=== PATIENT | male | born 1965 | race Caucasian/White ===

== ENCOUNTER 2025-01-30 11:23 | Emergency (ER) | payer BC, SELFPAY ==
--- NOTE | ~2025-01-30 | XR_ITS ---
XR shoulder LT min 2V 01/30/2025 11:40 INDICATION: Left shoulder deformity PROCEDURE: 4 views left shoulder COMPARISON: No prior studies for comparison. FINDINGS: There is widening of the coracoclavicular distance with superior displacement of the distal clavicle relative to the acromion, consistent with acromioclavicular joint separation. Glenohumeral joint intact. No acute fracture identified. The soft tissues appear within normal limits. No foreign bodies are identified. IMPRESSION: 1: Acromioclavicular joint separation. Reviewed, dictated and finalized at location A.
[2025-01-30 11:25] VITALS: BP 143/82; PULSE 75; RESP 16; TEMP 36.6; O2SAT 97
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
== END 2025-01-30 13:27 | disposition home or self-care (01) ==
LOC: ANHED 13:13
PROVIDERS: Emergency Provider Emergency Medicine
DX: S43.005A Unspecified dislocation of left shoulder joint, initial encounter (principal); V86.56XA Driver of dirt bike or motor/cross bike injured in nontraffic accident, initial encounter
CPT/HCPCS: 73030; 99283; A4565